=== PATIENT | female | born 1990 | race Caucasian/White ===

== ENCOUNTER 2018-01-26 18:02 | Outpatient (CLI) | payer OTHER | END 2018-01-26 19:16 | disposition home or self-care (01) | LOC: D.LDO 18:02 | DX: O26.892 Other specified pregnancy related conditions, second trimester (principal); Z3A.24 24 weeks gestation of pregnancy; R20.2 Paresthesia of skin; R51 Headache ==

== ENCOUNTER → 2018-03-22 14:18 | Outpatient (CLI) | payer BC | END | disposition home or self-care (01) | LOC: D.LDO 14:18 | DX: O26.899 Other specified pregnancy related conditions, unspecified trimester (principal); Z3A.00 Weeks of gestation of pregnancy not specified ==

== ENCOUNTER → 2018-04-28 09:47 | Outpatient (CLI) | payer OTHER ==
[~2018-04-28 09:47] MED LIST: GLYBURIDE2.5 MG PO
[2018-05-10 05:56] VITALS: BMI 31.1
== END | disposition home or self-care (01) ==
LOC: D.LDO 09:47
DX: O26.893 Other specified pregnancy related conditions, third trimester (principal); Z3A.37 37 weeks gestation of pregnancy

== ENCOUNTER → 2018-04-30 09:34 | Outpatient (CLI) | payer BC | END | disposition home or self-care (01) | LOC: D.LDO 09:34 | DX: O24.419 Gestational diabetes mellitus in pregnancy, unspecified control (principal); Z3A.37 37 weeks gestation of pregnancy ==

== ENCOUNTER → 2018-05-04 09:46 | Outpatient (CLI) | payer BC | END | disposition home or self-care (01) | LOC: D.LDO 09:46 | DX: O24.419 Gestational diabetes mellitus in pregnancy, unspecified control (principal); Z3A.38 38 weeks gestation of pregnancy ==

== ENCOUNTER 2018-05-10 05:12 | Inpatient (IN) | payer BC ==
[~2018-05-10] VITALS: Ht 170.2 cm; Wt 89.8 kg
[2018-05-10] MEDS ORDERED: GLYBURIDE2.5 MG PO (05:54)
[2018-05-10 05:56] VITALS: BP 131/82; Ht 170.2 cm; Wt 89.8 kg
[2018-05-10 06:06] LABS: HEMATOCRIT 30.5 % (36.0-48.0); HEMOGLOBIN 9.8 g/dL (12-16); MCH 25.7 pg (26.0-34.0); MCHC 32.1 g/dL (31.0-37.0); MCV 80.1 fL (80.0-100.0); RBC 3.81 10x6/uL (4.00-5.40); RDW 13.5 % (11.5-14.5); WBC 11.3 10x3/uL (4.8-10.8)
[2018-05-10 06:25] LABS: APPEARANCE CLEAR (CLEAR); BACTERIA MANY /hpf (NONE SEEN); BILIRUBIN NEGATIVE (NEGATIVE); COLOR YELLOW (YELLOW); EPITHELIAL CELLS 0-5 /hpf (0-5); GLUCOSE NEGATIVE (NEGATIVE); KETONE NEGATIVE (NEGATIVE); NITRITE NEGATIVE (NEGATIVE); PROTEIN NEGATIVE (NEGATIVE); RED CELLS - URINE NONE SEEN /hpf (0-5); UROBILINOGEN NORMAL (NORMAL); WHITE CELLS - URINE 0-5 /hpf (0-5)
[2018-05-10 22:32] VITALS: BP 127/64
[2018-05-11 07:26] LABS: RAPID PLASMA REAGIN Non Reactive (Non Reactive)
[2018-05-11 08:06] VITALS: BP 113/79
[2018-05-11 09:53] LABS: BASOPHILS 0.1 % (0-2); EOSINOPHILS 1.3 % (0-7); HEMATOCRIT 26.8 % (36.0-48.0); HEMOGLOBIN 8.7 g/dL (12-16); IMMATURE GRANULOCYTES 0.7 % (0-5); MCHC 32.5 g/dL (31.0-37.0); MEAN PLATELET VOLUME 10.8 fL (7.4-10.4); MONOCYTES 8.6 % (2-11); NEUTROPHILS 70.3 % (40-80); PLATELET COUNT 237 10x3/uL (130-400); RBC 3.35 10x6/uL (4.00-5.40); RDW 13.6 % (11.5-14.5); WBC 11.8 10x3/uL (4.8-10.8)
== END 2018-05-11 18:20 | disposition home or self-care (01) | DRG 807 ==
LOC: D.LD
PROVIDERS: Obstetrics & Gynecology
PROC: 10E0XZZ Delivery of Products of Conception, External Approach (ICD-10-PCS; principal; 2018-05-10)
PROC: 10907ZC Drainage of Amniotic Fluid, Therapeutic from Products of Conception, Via Natural or Artificial Opening (ICD-10-PCS; 2018-05-10)
PROC: 3E0P7VZ Introduction of Hormone into Female Reproductive, Via Natural or Artificial Opening (ICD-10-PCS; 2018-05-10)
PROC: 10E0XZZ Delivery of Products of Conception, External Approach (ICD-10-PCS; 2018-05-10)
DX: O80 Encounter for full-term uncomplicated delivery (principal); Z37.0 Single live birth; Z3A.39 39 weeks gestation of pregnancy